=== PATIENT | female | born 1965 | race Caucasian/White ===

== ENCOUNTER 2017-07-18 22:58 | Emergency (ER) | payer OTHER ==
--- NOTE | 2017-07-18 23:07 | ED.PDOC ---
History of Present Illness - General Chief Complaint: Upper Extremity Injury Stated Complaint: pain left 5th finger Time Seen by Provider: 07/18/17 23:06 Source: patient Exam Limitations: no limitations - History of Present Illness Initial Comments: Ashley Kirk 52 y/o [facility] [employer] [facility] with sharp pain left 5th finger stating she might have hit something hard on her porch this evening.She was served a warrant of arrest by the parking meter mechanic office today. Occurred: this evening Pain - Upper Extremity: moderate: Hand, left Method of Injury: other - see hpi Improving Factors: rest Worsening Factors: movement Allergies/Adverse Reactions: Allergies NO KNOWN ALLERGY Allergy (Verified 07/18/17 23:08) Review of Systems - Review of Systems Constitutional: States: no symptoms reported EENTM: States: no symptoms reported Respiratory: States: no symptoms reported Cardiology: States: no symptoms reported Gastrointestinal/Abdominal: States: no symptoms reported Genitourinary: States: no symptoms reported Musculoskeletal: States: see HPI All other Systems: Reviewed and Negative, No Change from Baseline Past Medical History (General) - Patient Medical History Hx Seizures: No Hx Stroke: No Hx Asthma: No Hx Hypertension: No Hx Diabetes: No Family Medical History - Family History Mother Family History: Unknown Hx Family Diabetes: Yes - dad Physical Exam - Physical Exam General Appearance: Alert, No apparent distress Eyes, Ears, Nose, Throat Exam: normal ENT inspection Neck: full range of motion, supple Cardiovascular/Respiratory: regular rate, rhythm, no M/R/G, normal peripheral pulses Abdominal Exam: non-tender, no organomegaly Shoulder Exam: normal inspection, non-tender, no evidence of injury, normal ROM Elbow/Forearm Exam: normal inspection, non-tender, no evidence of injury, normal ROM Wrist Exam: normal inspection, non-tender, no evidence of injury, normal ROM Hand Exam: bone tenderness - left 5th finger, ecchymosis - left 5th finger, limited ROM - painful, soft tissue tenderness - left 5th finger Neuro/Tendon: normal sensation, normal motor functions, normal tendon functions , responds to pain Mental Status: alert, oriented x 3 Skin Exam: normal color, warm/dry Progress - Progress Progress: 07/18/17 23:54 Last Vital Signs Temp 97.4 F L 07/18/17 23:12 Pulse 78 07/18/17 23:12 Resp 20 07/18/17 23:12 BP 172/95 07/18/17 23:12 Pulse Ox 98 07/18/17 23:12 - Results/Orders Results/Orders: result of x ray released to patient for follow up with alf medical personnel - EKG/XRAY/CT XRAY: hand left-fracture non displaced 5th digit Procedures - Splinting Left 5th Digit Hand Pre-Made Type: metal Splint: aluminum Pre-Proc Neuro Vasc Exam: normal Post-Proc Neuro Vasc Exam: normal Departure - Departure Clinical Impression: Pain in finger of left hand Fracture of phalanx of little finger Qualifiers: Encounter type: initial encounter Fracture type: closed Phalanx: middle Fracture alignment: nondisplaced Laterality: left Qualified Code(s): S62.657A - Nondisplaced fracture of medial phalanx of left little finger, initial encounter for closed fracture Time of Disposition: 00:09 Disposition: Discharge to Home or Self Care Departure Forms: ED Discharge - Pt. Copy, Patient Portal Self Enrollment Instructions: DI for Finger Fracture Additional Instructions: Need repeat X-ray left 5th digit in 2 weeks;May take over the counter Advil 3 tablets 3 x a day for pain as needed
[2017-07-18 23:19] VITALS: O2SAT 98
--- NOTE | 2017-07-18 23:41 | RAD ---
EXAM DESCRIPTION: Hand,Left 3 Views CLINICAL HISTORY: left 5th finger edema,pain COMPARISON: None. FINDINGS: 3 views of the left hand. Acute nondisplaced intra-articular fracture involving the base of the left fifth middle phalanx. No other fractures identified. Osteopenia. Mild osteoarthritic change of the PIP and DIPs. IMPRESSION: 1. Acute nondisplaced intra-articular fracture involving the base of the left fifth middle phalanx. Electronically signed by: Stanislav Graham 07/18/2017 11:40 PM [facility]
[2017-07-19 00:17] VITALS: BP 153/60; TEMP 98.6
== END 2017-07-19 00:20 | disposition home or self-care (01) ==
LOC: ER 22:58
DX: S62.657A Nondisplaced fracture of middle phalanx of left little finger, initial encounter for closed fracture (principal); W22.8XXA Striking against or struck by other objects, initial encounter; Y92.008 Other place in unspecified non-institutional (private) residence as the place of occurrence of the external cause

== ENCOUNTER → 2020-04-15 | Outpatient (CLI) | payer SELFPAY ==
--- NOTE | 2020-04-15 17:41 | RAD ---
EXAM DESCRIPTION: Abdomen Flat Upright CLINICAL HISTORY: LEFT UPPER QIADRANT PAIN COMPARISON: None. TECHNIQUE: AP supine and upright views the abdomen FINDINGS: Degenerative changes are observed in the lumbar spine. There is convexity of the spine to the left. No evidence of free intraperitoneal air is seen. The abdomen is relatively gasless. The exam does suggest the possibility of some hepatomegaly. No urinary tract calcifications are detected. IMPRESSION: The exam suggests the possibility of some hepatomegaly. The exam is otherwise unremarkable. Electronically signed by: Kali Daley MD 04/15/2020 5:40 PM CDT
== END ==
LOC: YCFC.O 10:49
PROVIDERS: ATTEND Nurse Practitioner Family
DX: R10.12 Left upper quadrant pain (principal); R14.0 Abdominal distension (gaseous); K76.9 Liver disease, unspecified

== ENCOUNTER → 2020-04-16 | Outpatient (CLI) | payer SELFPAY | LOC: LAB.O 08:55 | PROVIDERS: ATTEND Nurse Practitioner Family | DX: R10.12 Left upper quadrant pain (principal); R14.0 Abdominal distension (gaseous) ==

== ENCOUNTER → 2020-04-26 | Outpatient (CLI) | payer SELFPAY ==
--- NOTE | 2020-04-27 15:28 | US ---
EXAM DESCRIPTION: Abdomen,Limited: ULTRASOUND. CLINICAL HISTORY: UPPER ABDOMINAL PAIN COMPARISON: Abdomen radiograph April 15 TECHNIQUE: Transabdominal scanning: trivedi-scale mode. Doppler mode. FINDINGS: Gallbladder: Multiple small echogenic stones. Minimal fluid in Morison's pouch. Wall thickening 4.2 mm Non-tender with transducer pressure. Common bile duct: caliber 6.1 mm borderline dilated. Liver: Heterogeneous increased echogenicity; contour liver capsule smooth where seen. Large amount of fluid around the liver. Intrahepatic biliary ducts normal caliber. Doppler hepatopedal flow and normal caliber portal vein.. 12 mm. Long axis right lobe 19.6 Pancreas: normal size and echogenicity. Duct not seen. Proximal abdominal aorta: Normal caliber.. IVC: visualized and normal caliber. Right kidney: long axis measures 9.6 cm; volume 74.8 ml. Cortical echogenicity is normal. Normal cortical thickness. No echogenic stones; no hydronephrosis. Spleen: Normal echogenicity. 11.1 cm long axis. IMPRESSION: 1. Enlarged liver with steatosis. Physiologic ducts and vascularity. Smooth capsule. Moderate ascites around the liver and spleen. Pancreas is negative. 2. Cholelithiasis of the gallbladder. Common bile and borderline dilated. Nontender with transducer pressure. 3. Right kidney unremarkable. Spleen is negative. Normal caliber proximal abdominal aorta and IVC. Electronically signed by: Scra Gustafson MD 04/27/2020 3:27 PM CDT
== END ==
LOC: US 08:11
PROVIDERS: ATTEND Nurse Practitioner Family
DX: K76.0 Fatty (change of) liver, not elsewhere classified (principal); K83.8 Other specified diseases of biliary tract; R18.8 Other ascites; K80.20 Calculus of gallbladder without cholecystitis without obstruction; E66.9 Obesity, unspecified

== ENCOUNTER → 2020-05-06 | Outpatient (CLI) | payer SELFPAY ==
--- NOTE | 2020-05-06 11:46 | CT ---
EXAM DESCRIPTION: CT ABDOMEN AND PELVIS WITH CONTRAST CLINICAL HISTORY: ABDOMINAL DISTENSION COMPARISON: Ultrasound abdomen April 16, 2020 TECHNIQUE: CT of the abdomen and pelvis are performed during IV bolus administration of 100 mL of Isovue 300. Oral contrast media is administered as well. FINDINGS: In the lower chest, the lung bases are clear. Heart size is normal. Multiple nodules adjacent to the heart and anterior diaphragm most consistent with lymph nodes. These are increased in number. One node measures 7.5 mm short axis dimension consistent with enlargement. Metastatic disease would be a major consideration with this appearance. CT abdomen Large volume of fluid in the abdomen consistent with ascites with marked abdominal distention. Subtle nodularity in the anterior upper abdominal fat. The omentum is thickened and infiltrated in appearance consistent with "omental cake" of metastatic disease. This can be seen with ovarian carcinoma, breast cancer or lung cancer. This could also be seen with peritoneal mesothelioma or tuberculous peritonitis. Correlate with results of laboratory studies of aspirated ascitic fluid. No liver surface irregularity to suggest cirrhosis. No focal liver lesion to suggest hepatic metastatic disease. Multiple stones in the gallbladder. Otherwise the spleen, pancreas, stomach and kidneys are unremarkable in appearance. Prominent adrenal glands without focal mass suggesting mild hyperplasia. No inflammation around the pancreas. No renal stones or hydronephrosis. Ill-defined increased density in the gastrohepatic ligament consistent with clustered nodes in the 0.7 to 1.4 cm size range. These could be malignant. Nodularity along the anterior aspect of the distal stomach is closely associated with the omental infiltrative mass. No bowel dilatation to suggest obstruction. CT pelvis Appendix is normal in size. No inflammation around the cecum or terminal ileum or sigmoid colon. Bladder and distal ureters are negative for stones. Normal enhancement of pelvic vessels. No inguinal or lower pelvic adenopathy. Uterus is not seen and may be surgically absent. Cystic adnexal lesions are present bilaterally measuring 4 cm on the left and 2.9 cm on the right. These are most likely related to the ovaries. Further evaluation with ultrasound is recommended. Peritoneal surfaces appear slightly thickened in the midline posteriorly with subtle enhancement. Above the near empty bladder, nodular peritoneal surface thickening is seen posteriorly in the midline and extending laterally. Early peritoneal carcinomatosis must be considered with this appearance. Bone window images are negative for fracture or lytic lesion. Coronal and sagittal reformatted images confirm the findings. Degenerative scoliotic curvature of the lower thoracic and lumbar spine. IMPRESSION: Large amount of abdominal ascites with abdominal distention. Thickened infiltrated appearance of the omentum with upper abdominal and paracardiac adenopathy worrisome for metastatic disease. Peritoneal surface thickening in the pelvis worrisome for peritoneal carcinomatosis. Correlate with laboratory analysis of ascitic fluid. This exam was performed according to our departmental dose-optimization program, which includes automated exposure control, adjustment of the mA and/or kV according to patient size and/or use of iterative reconstruction technique. Total DLP equals 1458.85 mGycm. Electronically signed by: Eulalio Coronado MD 05/06/2020 11:45 AM INSTITUTIONAL RESEARCH DIRECTOR
== END ==
LOC: CT 08:00
PROVIDERS: ATTEND Surgery
DX: R14.0 Abdominal distension (gaseous) (principal); R18.8 Other ascites; R59.9 Enlarged lymph nodes, unspecified; K66.8 Other specified disorders of peritoneum

== ENCOUNTER 2020-05-09 13:48 | Emergency (ER) | payer SELFPAY ==
[2020-05-09 14:16] VITALS: TEMP 97.8
--- NOTE | 2020-05-09 14:24 | ED.PDOC ---
History of Present Illness - General Chief Complaint: GI Problem Time Seen by Provider: 05/09/20 13:50 Information Source: patient, RN notes reviewed, Vital Signs reviewed, family, old records Exam Limitations: no limitations - History of Present Illness Initial Comments: 55 yo F with ascities from unknown cause, has had workup per patient, presents with abdominal discomfort from being distended, short of breath. Was suppose to have fluid drained tomorrow, but couldn't wait any longer. no fever. no hx of hepatitis or etoh abuse. states she has one ovary, has not had pelvic us. Review of Systems - Review of Systems Constitutional: Denies: chills, fever, malaise EENTM: Denies: blurred vision, mouth pain Respiratory: States: short of breath. Denies: cough, stridor Cardiology: Denies: chest pain, palpitations Gastrointestinal/Abdominal: Denies: abdominal pain, diarrhea, nausea, vomiting Genitourinary: Denies: frequency, hematuria Musculoskeletal: Denies: joint swelling, muscle pain, muscle stiffness Skin: Denies: change in hair/nails, dryness Neurological: Denies: headache, numbness, paresthesia, pre-existing deficit, ti ngling, tremors, weakness Endocrine: Denies: increased hunger, increased thirst, increased urine, unexplained weight gain, unexplained weight loss Hematologic/Lymphatic: Denies: blood clots, easy bleeding, easy bruising Past Medical History (General) - Patient Medical History Hx Seizures: No Hx Stroke: No Hx Dementia: No Hx Asthma: No Hx of COPD: No Hx Cardiac Disorders: No Hx Congestive Heart Failure: No Hx Pacemaker: No Hx Hypertension: No Hx Thyroid Disease: No Hx Diabetes: No Hx Gastroesophageal Reflux: No Hx Renal Disease: No Hx Cancer: No Hx of HIV: No Hx Hepatitis C: No Hx MRSA: No MRSA Source:: Nose Surgical History: Hysterectomy, other - Vaccination History Hx Tetanus, Diphtheria Vaccination: No Hx Influenza Vaccination: No Hx Pneumococcal Vaccination: No - Social History Hx Tobacco Use: Yes - Half a pack a day Hx Chewing Tobacco Use: No Hx Alcohol Use: No Hx Substance Use: No Hx Substance Use Treatment: No Hx Depression: No Feels Threatened In Home Enviroment: No Feels Threatened In a Relationship: No Hx Physical Abuse: No Hx Emotional Abuse: No Hx Suspected Abuse: No - Female History Patient is a Female of Child Bearing Age (10 -59 yrs old): Yes Patient : No - Triage Comment ED Triage Comment: The patient was alert and oriented times 4 and had noted swelling in all abdominal quadrants. She had noted difficulty taking a deep breath due to the swelling. She stated that the pain was worse upon movement and palpation. She did not appear in distress and had no other noted complaints at the time of assesment. Family Medical History - Family History Mother Family History: Unknown Hx Family Diabetes: Yes - dad Physical Exam - Physical Exam General Appearance: Alert, Comfortable, No apparent distress, Well Developed, Well Groomed, Well Hydrated, Well Nourished Eyes, Ears, Nose, Throat Exam: PERRL/EOMI, normal ENT inspection Neck: non-tender, full range of motion, supple, normal inspection Respiratory: chest non-tender, lungs clear, normal breath sounds, no respiratory distress, no accessory muscle use Cardiovascular/Chest: normal peripheral pulses, regular rate, rhythm, no gallop, no JVD, no murmur Peripheral Pulses: 2+ Gastrointestinal/Abdominal: normal bowel sounds, non tender, distended Rectal Exam: deferred Back Exam: normal inspection, no CVA tenderness Extremity: normal range of motion, non-tender, normal inspection Neurologic: as400 operator II-XII nml as tested, no motor/sensory deficits, alert, normal mood/affect, oriented x 3 Skin Exam: normal color, warm/dry Progress - Progress Progress: Discussed with Dr. Chan who is okay If I proceed with paracentesis. Was suppose to be done in his office tomorrow. studies including cytology sent. 05/09/20 16:58 INDICATION: shortness of breath PROCEDURE STENCIL PRINTER: self Ultrasound used to pao location: Y CONSENT: Consent was obtained from patient prior to the procedure. Indications, risks, and benefits were explained at length. PROCEDURE SUMMARY: A time-out was performed. My hands were washed immediately prior to the procedur e. I wore a surgical cap, mask with protective eyewear, sterile gown and sterile gloves throughout the procedure. The area was cleansed and draped in usual sterile fashion using chlorhexidine scrub. Anesthesia was achieved with 1% lidocaine. The _ of the abdomen was prepped and draped in a sterile fashion using chlorhexidine scrub. 1% lidocaine was used to numb the skin, soft tissue and peritoneum. The paracentesis catheter was inserted and advanced with negative pressure until yellow colored fluid was aspirated. Approximately 60 mL of ascitic fluid was collected and sent for laboratory analysis. The catheter was then connected to the vaccutainer and 6.5 liters of additional ascitic fluid were drained. The catheter was removed and no leaking was noted. A bandaid was placed over the puncture wound. The patient tolerated the procedure well without any immediate complications. Estimated blood loss was minimal. patient felt much relief, no longer short of breth. The data reviewed when caring for this patient included: nurse notes, prior records, etc. The history and assessments from nurses notes were reviewed and considered, and the patient's home medication list was also reviewed and considered. My assessment and the results of testing completed here in the ED were discussed with the patient/family. All questions were answered, and they express understanding of my assessment and the plan. They have been instructed to return if their symptoms worsen, and have been asked to follow up with their primary care physician to recheck today's presenting complaint. Strict return precautions given. vss patient discharged home instable condition. - Results/Orders Results/Orders: 05/09/20 15:15 GRAM STAIN Stat 05/09/20 16:17 GLUCOSE,PERITONEAL FLUID Stat TOTAL PROTEIN,PERITONEAL FLUID Stat CELL COUNT/DIFF,PERITONEAL FLD Stat 05/09/20 16:41 Discharge Stat 05/09/20 16:47 PATHOLOGY SPECIMEN Routine 05/09/20 16:49 AMYLASE,PERITONEAL FLUID Stat Laboratory Results WBC 5.6 K/mm3 (4.8-10.8) 05/09/20 14:41 RBC 5.29 M/mm3 (4.20-5.40) 05/09/20 14:41 Hgb 13.3 gm/dL (12.0-16.0) 05/09/20 14:41 Hct 40.3 % (36.0-47.0) 05/09/20 14: MCV 76.2 fl (81.0-99.0) L 05/09/20 14: MCH 25.1 pg (27.0-31.0) L 05/09/20 14: MCHC 32.9 g/dL (33.0-37.0) L 05/09/20 14:41 RDW 17.3 % (11.5-14.5) H 05/09/20 14:41 Plt Count 250 K/mm3 (130-400) 05/09/20 14:41 MPV 8.3 fl (7.40-10.4) 05/09/20 14:41 Absolute Neuts (auto) 3.50 K/uL (1.8-6.8) 05/09/20 14:41 Absolute Lymphs (auto) 1.70 K/uL (1.0-3.4) 05/09/20 14:41 Absolute Monos (auto) 0.30 K/uL (0.2-0.8) 05/09/20 14:41 Absolute Eos (auto) 0.10 K/uL (0.0-0.4) 05/09/20 14:41 Absolute Basos (auto) 0.10 K/uL (0.0-0.1) 05/09/20 14:41 Neutrophils % 62.5 % (42.0-78.0) 05/09/20 14:41 Lymphocytes % 29.7 % (20.0-50.0) 05/09/20 14:41 Monocytes % 4.6 % (2.0-9.0) 05/09/20 14:41 Eosinophils % 2.0 % (1.0-5.0) 05/09/20 14:41 Basophils % 1.2 % (0.0-2.0) 05/09/20 14:41 PT 10.4 SECONDS (9.0-10.9) 05/09/20 14:41 INR 1.05 (0.9-1.15) 05/09/20 14:41 PTT (SP) 27.6 SECONDS (21.8-31.6) 05/09/20 14:41 Sodium 138 mmol/L (135-145) 05/09/20 14:41 Potassium 3.9 mmol/L (3.6-5.0) 05/09/20 14:41 Chloride 102 mmol/L (101-111) 05/09/20 14:41 Carbon Dioxide 25 mmol/L (21-31) 05/09/20 14:41 Anion Gap 14.9 (12-18) 05/09/20 14:41 BUN 7 mg/dL (7-18) 05/09/20 14:41 Creatinine 0.91 mg/dL (0.6-1.3) 05/09/20 14:41 BUN/Creatinine Ratio 7.7 (10-20) L 05/09/20 14:41 Random Glucose 98 mg/dL (70-105) 05/09/20 14:41 Serum Osmolality 273.6 mOsm/L (275-295) L 05/09/20 14:41 Calcium 8.7 mg/dL (8.4-10.2) 05/09/20 14:41 Total Bilirubin 0.3 mg/dL (0.2-1.0) 05/09/20 14:41 AST 22 IU/L (10-42) 05/09/20 14:41 ALT 11 IU/L (10-60) 05/09/20 14:41 Alkaline Phosphatase 75 IU/L (42-121) 05/09/20 14:41 Serum Total Protein 7.5 gm/dL (6.4-8.2) 05/09/20 14:41 Albumin 3.5 g/dl (3.2-5.5) 05/09/20 14:41 Globulin 4.0 gm/dL (2.3-3.5) H 05/09/20 14:41 Albumin/Globulin Ratio 0.9 (1.1-1.9) L 05/09/20 14:41 Peritoneal Uric Acid Cancelled 05/09/20 16:17 Departure - Departure Clinical Impression: Ascites Qualifiers: Ascites type: other type Qualified Code(s): R18.8 - Other ascites Dyspnea Qualifiers: Dyspnea type: unspecified Qualified Code(s): R06.00 - Dyspnea, unspecified Time of Disposition: 16:40 Disposition: Discharge to Home or Self Care Departure Forms: ED Discharge - Pt. Copy, Patient Portal Self Enrollment Instructions: Abdominal Paracentesis, Fluid in the Belly (Ascites) (DC), Liver Failure Diet Referrals: DANNY FELDER AGENCY DIRECTOR [Primary Care Provider] - 1-5 Days
[2020-05-09 16:47] VITALS: BP 148/91; O2SAT 97
== END 2020-05-09 16:47 | disposition home or self-care (01) ==
LOC: ER 13:48
DX: R18.8 Other ascites (principal); R06.02 Shortness of breath; Z87.891 Personal history of nicotine dependence

== ENCOUNTER 2020-05-23 05:24 | Day surgery (SDC) | payer SELFPAY ==
--- NOTE | 2020-05-23 06:38 | RAD ---
EXAM DESCRIPTION: Chest,2 Views CLINICAL HISTORY: 55 years Female, preop COMPARISON: October 30, 2008 FINDINGS: 2 views/radiographs Heart size and pulmonary vessels are within normal limits. There is no pneumothorax or pleural effusion. The lungs are clear bilaterally. The soft tissues are unremarkable. No acute osseous findings. IMPRESSION: No acute cardiopulmonary abnormality. Electronically signed by: José Martino MD 05/23/2020 6:36 AM [facility]
[2020-05-23] MEDS ORDERED: LACTATED RINGERS 1,000 ML ONE (06:39)
[2020-05-23] MEDS ORDERED: MAGNESIUM SULFATE INJ 1 GM/2 ML VIAL ONE (07:00)
[2020-05-23] MEDS ORDERED: PROPOFOL 200 MG/20 ML VIAL IV ONE (07:00)
[2020-05-23] MEDS ORDERED: LIDOCAINE 1% 10 ML VIAL INJ ONE (07:00)
[2020-05-23] MEDS ORDERED: DEXAMETHASONE INJ 10 MG/ML VIAL ONE (07:00)
[2020-05-23] MEDS ORDERED: BUPIVACAINE 0.5% W/EPI 30 ML VIAL INJ ONE ×4 (10:15→12:23)
[2020-05-23] MEDS ORDERED: ROCURONIUM BROMIDE 10 MG/ML VIAL ONE (12:17)
[2020-05-23] MEDS ORDERED: FAMOTIDINE INJ 10 MG/ML VIAL IV ONE (12:17)
[2020-05-23] MEDS ORDERED: fentaNYL CITRATE INJ 50 MCG/ML 2 ML AMP ONE (12:17)
[2020-05-23] MEDS ORDERED: KETAMINE HCL 100 MG/ML VIAL ONE (12:17)
[2020-05-23] MEDS ORDERED: SUGAMMADEX SODIUM 200 MG/2 ML VIAL IV ONE ×2 (12:17→12:25)
[2020-05-23] MEDS ORDERED: MIDAZOLAM INJ 2 MG/2 ML VIAL ONE (12:18)
[2020-05-23] MEDS ORDERED: HYDROmorphone HCL INJ 2 MG/ML VIAL ONE (12:56)
[2020-05-23] MEDS ORDERED: ONDANSETRON INJ 4 MG/2 ML VIAL ONE (13:33)
--- NOTE | 2020-05-23 13:36 | OP ---
DATE OF PROCEDURE: 05/23/20 PREOPERATIVE DIAGNOSIS: 1. Recurrent ascites. 2. Possible carcinomatosis. POSTOPERATIVE DIAGNOSIS: 1. Carcinomatosis. 2. Ascites. PROCEDURE: 1. Aspiration of 7 liters of ascites. 2. Peritoneal biopsy. SURGEON: Hubert Chan MD ANESTHESIA: General FINDINGS: There was multiple seeding about the peritoneum with some fixation in the pelvis as well as an omental cake. Merry Go Round Operator peritoneal biopsies were done of the nodules. COMPLICATIONS: None. ESTIMATED BLOOD LOSS: Minimal. PLAN: Discharge. INDICATION: This is a 55-year-old woman who had noticed some increasing swelling in her abdomen. She had planned an outpatient paracentesis for evaluation. She ended up in the Emergency Department before that and got 7 liters drained. The actual cytology came back negative, but there was suspicion on the CT scan for possible omental caking and thickening in the pelvis. We recommended exploratory laparoscopy. PROCEDURE: She was brought to the Operating Suite in supine position. General anesthesia was induced. She was prepped and draped in sterile fashion. 0.5% Marcaine with epinephrine was used at all incision sites. While maintaining upward traction, a mariah was made superior to the umbilicus. The Veress needle was introduced. There was free flow of fluid into the peritoneal cavity, which was insufflated to an appropriate level of CO2 gas. The 5 mm trocar was placed, followed by the camera. There was no evidence of bleeding or bile leaking. There was a lot of ascites and obvious peritoneal seeding. Two lower ports were placed, 5 mm trocars, without difficulty. We aspirated the ascites. They had gotten 7 liters previously. She felt more symptomatic and all 700 was removed with a very small volume remaining, none that could be visualized. We scanned the abdomen and took multiple pictures. There was peritoneal seeding, relatively thick, on the diaphragm surfaces, bilateral peritoneum, along the midline of the abdomen and some fixation in the pelvis without obvious obstruction and then a large omental cake in the left upper quadrant. Peritoneal biopsies were taken in three separate areas, one pelvis biopsy was taken, but it just appeared to be some necrotic tissue. It will all be sent together as specimen. At this point, the area was hemostatic and risk of draining from the umbilical site. It was closed with a 0 Vicryl using the suture passer. The remaining trocars were removed, the abdomen desufflated and the wound were closed with Monocryl and dressings applied. She was awakened and taken to Recovery to be discharged. #[id number] [facility]
[2020-05-23] MEDS ORDERED: HYDROcodone 5MG/APAP 325MG 1 EA TAB ONE (14:08)
[2020-05-23] MEDS ORDERED: ONDANSETRON ODT 8 MG TAB ONE (14:13)
[2020-05-23] MEDS ORDERED: ONDANSETRON ODT 8 MG TAB PO ONE (14:14)
[2020-05-23 15:43] VITALS: BP 129/83; TEMP 97.1; O2SAT 100
== END 2020-05-23 15:25 | disposition home or self-care (01) ==
LOC: AMB 05:24
PROVIDERS: ATTEND Surgery
DX: R18.8 Other ascites (principal); C48.2 Malignant neoplasm of peritoneum, unspecified; K21.9 Gastro-esophageal reflux disease without esophagitis; Z88.0 Allergy status to penicillin; Z88.5 Allergy status to narcotic agent; Z79.899 Other long term (current) drug therapy
CPT/HCPCS: 00840; 36415; 49082; 49321; 71046; 80048; 85025; J1100; J1170; J2250; J2405; J3010; J3475; J3490; J7120

== ENCOUNTER → 2020-06-10 | Outpatient (CLI) | payer SELFPAY ==
--- NOTE | 2020-06-11 19:26 | MAM ---
EXAM DESCRIPTION: 3D Screening BILATERAL : Digital Mammography. CLINICAL HISTORY: 55 years Female SCREENING . No complaints. No family history of breast cancer. Menarche age 14. Childbirth age 21. Menopause age 27. No HRT. Lifetime risk of developing breast cancer (Tyrer-Cuzick model)(%): 6.2. COMPARISON: Baseline study at this facility. No prior reports available. TECHNIQUE: Bilateral CC and MLO projection full-field images, digital tomosynthesis mammographic technique. Bilateral digital 2-D full-field MLO images. CAD available for 2-D images. FINDINGS: The breast parenchymal density pattern is: Scattered areas of fibroglandular density. Bilateral solitary microcalcifications. Focal asymmetry with possible central mass density in the posterior third of the upper-outer quadrant of the right breast 9 cm from the nipple, approximately 9:30-10:00. Slightly more anteriorly and laterally is a possible mass density at 9:30 and 7:00. No skin thickening or nipple retraction No focal, stellate mass or density, focal asymmetry , and no suspicious microcalcifications left breast. IMPRESSION: BI-RADS CATEGORY: 0 - INCOMPLETE- Need additional imaging evaluation. RECOMMENDATIONS: FOLLOW-UP: Recall for additional imaging: Directed right breast ultrasound region of interest. Full field LM projection 2-D and tomosynthesis right breast.. Written communication concerning the IMPRESSION and Follow-up, will be mailed to the patient and referring health care provider. Electronically signed by: Scar Gustafson MD 06/11/2020 7:25 PM RISK ANALYST
== END ==
LOC: US 11:56
PROVIDERS: ATTEND Nurse Practitioner Family
DX: Z12.31 Encounter for screening mammogram for malignant neoplasm of breast (principal)

== ENCOUNTER 2020-06-12 09:17 | Emergency (ER) | payer SELFPAY ==
[2020-06-12] MEDS ORDERED: ONDANSETRON INJ 4 MG/2 ML VIAL ONE (09:49)
[2020-06-12] MEDS ORDERED: ONDANSETRON INJ 4 MG/2 ML VIAL IV ONE (10:10)
--- NOTE | 2020-06-12 10:23 | RAD ---
EXAM: Chest,2 Views CLINICAL HISTORY: COUGH, SOB, ASCITES COMPARISON STUDY: Chest x-ray from May 22, 2020. TECHNICAL: PA and lateral chest x-ray. FINDINGS: Small bilateral pleural effusions are present, left larger than right. No interstitial changes of edema. The heart is not enlarged. No visible consolidation/infiltrate. IMPRESSION: Small, left larger than right pleural effusions. No radiographic evidence of pulmonary edema. Electronically signed by: Racihd Peña MD 06/12/2020 10:21 AM [facility]
[2020-06-12] MEDS ORDERED: METOCLOPRAMIDE HCL INJ 10 MG/2 ML VIAL ONE (10:34)
[2020-06-12] MEDS ORDERED: METOCLOPRAMIDE HCL INJ 10 MG/2 ML VIAL IV ONE (10:36)
[2020-06-12] MEDS ORDERED: LIDOCAINE 1% 10 ML VIAL INJ ONE (11:47)
--- NOTE | 2020-06-12 12:27 | ED.PDOC ---
History of Present Illness - General Chief Complaint: General Stated Complaint: ovarian cancer / gained 3 pounds in 48hr d/t fluid Time Seen by Provider: 06/12/20 09:35 - History of Present Illness Initial Comments: PROGRESSIVE SOB X SEVERAL DAYS, WANTS TO GET ASCITES FLUID DRAINED OFF. Allergies/Adverse Reactions: Allergies Codeine Allergy (Verified 05/22/20 09:29) Penicillins Allergy (Verified 05/22/20 09:29) Povidone Iodine [From Betadine] Allergy (Verified 05/22/20 09:29) Home Medications: Ambulatory Orders Acetaminophen [[facility] Pain Relief Extra Str] 500 mg PO PRN PRN 05/22/20 Cetirizine HCl [Allergy Relief] 10 mg PO BEDTIME 05/22/20 Esomeprazole Magnesium [Nexium] 20 mg PO BEDTIME 05/22/20 Review of Systems - Review of Systems Constitutional: States: no symptoms reported EENTM: States: no symptoms reported Respiratory: States: no symptoms reported Cardiology: States: no symptoms reported Gastrointestinal/Abdominal: States: no symptoms reported Genitourinary: States: no symptoms reported Past Medical History (General) - Patient Medical History Hx Seizures: No Hx Stroke: No Hx Dementia: No Hx Asthma: No Hx of COPD: No Hx Cardiac Disorders: No Hx Congestive Heart Failure: No Hx Pacemaker: No Hx Hypertension: No Hx Thyroid Disease: No Hx Diabetes: No Hx Gastroesophageal Reflux: No Hx Renal Disease: No Hx Cancer: No Hx of HIV: No Hx Hepatitis C: No Hx MRSA: No MRSA Source:: Nose - Vaccination History Hx Tetanus, Diphtheria Vaccination: No Hx Influenza Vaccination: No Hx Pneumococcal Vaccination: No - Social History Hx Tobacco Use: Yes - Half a pack a day Hx Chewing Tobacco Use: No Hx Alcohol Use: No Hx Substance Use: No Hx Substance Use Treatment: No Hx Depression: No Hx Physical Abuse: No Hx Emotional Abuse: No Hx Suspected Abuse: No - Activities of Daily Living Hospice Agency (if applicable):: None - Female History Patient is a Female of Child Bearing Age (10 -59 yrs old): No Patient : No Family Medical History - Family History Mother Family History: Unknown Hx Family Diabetes: Yes - dad Physical Exam - Physical Exam General Appearance: Alert, Well Developed, Well Groomed, Well Hydrated, Well Nourished Ears, Nose, Throat: hearing grossly normal, normal ENT inspection, normal pharynx, abnormal TM (R) Neck: non-tender, full range of motion, supple Respiratory: chest non-tender, lungs clear, normal breath sounds, no respiratory distress, no accessory muscle use Cardiovascular/Chest: normal peripheral pulses, regular rate, rhythm, no edema, no gallop Gastrointestinal/Abdominal: normal bowel sounds, non tender, no organomegaly, other - DISTENDED ASCITES Extremity: no pedal edema Departure - Departure Clinical Impression: Malignant ascites Ovarian cancer Qualifiers: Laterality: unspecified laterality Qualified Code(s): C56.9 - Malignant neoplasm of unspecified ovary Disposition: Discharge to Home or Self Care Condition: Good Departure Forms: ED Discharge - Pt. Copy, Patient Portal Self Enrollment Diet: regular diet Referrals: DANNY FELDER NP [Primary Care Provider] - 1-2 Weeks Home Medications: Ambulatory Orders Acetaminophen [[facility] Pain Relief Extra Str] 500 mg PO PRN PRN 05/22/20 Cetirizine HCl [Allergy Relief] 10 mg PO BEDTIME 05/22/20 Esomeprazole Magnesium [Nexium] 20 mg PO BEDTIME 05/22/20 Additional Instructions: KEEP FOLLOW UP WITH ONCOLOGY AND YOUR PCP.
[2020-06-12 14:16] VITALS: BP 128/79; TEMP 98.4; O2SAT 97
== END 2020-06-12 12:45 | disposition home or self-care (01) ==
LOC: ER 09:17
DX: R18.0 Malignant ascites (principal); C56.9 Malignant neoplasm of unspecified ovary; R06.02 Shortness of breath; Z88.5 Allergy status to narcotic agent; Z88.0 Allergy status to penicillin; Z91.041 Radiographic dye allergy status; Z79.899 Other long term (current) drug therapy; Z87.891 Personal history of nicotine dependence; Z20.828 Contact with and (suspected) exposure to other viral communicable diseases
CPT/HCPCS: 36415; 71046; 80053; 82150; 82945; 83605; 84157; 85025; 85610; 85730; 87040; 87502; 87635; J2405; J2765

== ENCOUNTER 2020-06-29 11:45 | Emergency (ER) | payer SELFPAY ==
[2020-06-29] MEDS ORDERED: SODIUM CHLORIDE 0.9% (FLUSH) 10 ML SYG IV PRN (12:12)
[2020-06-29] MEDS ORDERED: KETOROLAC TROMETHAMINE INJ 30 MG/ML VIAL IV ONE (12:17)
--- NOTE | 2020-06-29 13:14 | CT ---
EXAM: Abdoment/Pelvis w/o Contrast CLINICAL INDICATION: Abdominal pain. COMPARISON: 05/06/2020 TECHNIQUE: The CT scan was done using contiguous axial 2.5 mm noncontrast sections through the abdomen and pelvis. This exam was performed according to our departmental dose-optimization program, which includes automated exposure control, adjustment of the mA and/or kV according to patient size and/or use of iterative reconstruction technique. FINDINGS: The visualized portions of the lung bases reveal a moderate left pleural effusion and a small right pleural effusion. There is mild atelectasis in the left lower lobe. A moderate amount of ascites is seen throughout the abdomen and pelvis. The liver and spleen are unremarkable. Multiple gallstones are noted in the gallbladder. The kidneys, adrenal glands, and pancreas are unremarkable except for mild prominence of the left adrenal gland. The aorta contains atherosclerotic calcifications without evidence of aneurysm. There are no dilated loops of small bowel, free air, free fluid, or abscess. The uterus is surgically absent. Bilateral simple appearing ovarian cysts are noted measuring 4.0 x 3.1 cm on the right and 3.5 x 3.2 cm on the left, almost certainly benign for which no routine imaging follow-up is recommended. Compared to the previous CT scan, pleural effusions are new. Ascites is decreased compared to the prior study. IMPRESSION: 1. Bilateral pleural effusions left greater than right. 2. Moderate ascites. 3. Cholelithiasis. 4. No other acute process is identified. Electronically signed by: Greg Alvarez MD 06/29/2020 1:13 PM CHIEF SOLUTION ARCHITECT
--- NOTE | 2020-06-29 13:49 | RAD ---
EXAM: Chest,1 View CLINICAL INDICATION: Rib pain COMPARISON: 06/12/2020 FINDINGS: A single view of the chest was obtained. The heart size is normal. The pulmonary vascularity is unremarkable. The lungs are clear except for a small left pleural effusion. There is a right-sided PICC line with its tip in the SVC. IMPRESSION: Small left pleural effusion, which appears similar to the previous study. Electronically signed by: Greg Alvarez MD 06/29/2020 1:47 PM HYDROGENATION STILL OPERATOR
[2020-06-29] MEDS ORDERED: FUROSEMIDE INJ 40 MG/4 ML VIAL IV ONE (14:30)
[2020-06-29] MEDS ORDERED: MEPERIDINE HCL 50 MG/ML VIAL IV ONE (14:31)
--- NOTE | 2020-06-29 14:36 | ED.PDOC ---
History of Present Illness - General Chief Complaint: Abdominal Pain Stated Complaint: Abdominal distention/pain, SOB, nausea Time Seen by Provider: 06/29/20 11:55 Source: patient, family Exam Limitations: no limitations - History of Present Illness Timing/Duration: other - States that she has had this intermittently for the last month Severity: moderate Improving Factors: nothing Worsening Factors: nothing Associated Symptoms: nausea/vomiting, shortness of breath Allergies/Adverse Reactions: Allergies Codeine Allergy (Verified 06/29/20 12:42) Penicillins Allergy (Verified 06/29/20 12:42) Povidone Iodine [From Betadine] Allergy (Verified 06/29/20 12:42) Home Medications: Ambulatory Orders Acetaminophen [[facility] Pain Relief Extra Str] 500 mg PO PRN PRN 05/22/20 Cetirizine HCl [Allergy Relief] 10 mg PO BEDTIME 05/22/20 Esomeprazole Magnesium [Nexium] 20 mg PO BEDTIME 05/22/20 Metoclopramide HCl [Reglan] 10 mg PO Q6H PRN #20 tab 06/12/20 Review of Systems - Review of Systems Constitutional: Denies: chills, fever EENTM: Denies: eye pain, blurred vision, tearing Respiratory: States: short of breath Cardiology: States: edema. Denies: chest pain, palpitations, syncope Gastrointestinal/Abdominal: Denies: abdominal pain, diarrhea, nausea Genitourinary: Denies: discharge, frequency, hematuria Musculoskeletal: States: muscle pain. Denies: back pain Neurological: Denies: anxiety, depressed Endocrine: Denies: excessive sweating, flushing, intolerance to cold Past Medical History (General) - Patient Medical History Hx Seizures: No Hx Stroke: No Hx Dementia: No Hx Asthma: No Hx of COPD: No Hx Cardiac Disorders: No Hx Congestive Heart Failure: No Hx Pacemaker: No Hx Hypertension: No Hx Thyroid Disease: No Hx Diabetes: No Hx Gastroesophageal Reflux: No Hx Renal Disease: No Hx Cancer: Yes - Stage 3 ovarian Hx of HIV: No Hx Hepatitis C: No Hx MRSA: No MRSA Source:: Nose Surgical History: Hysterectomy, other - Vaccination History Hx Tetanus, Diphtheria Vaccination: No Hx Influenza Vaccination: No Hx Pneumococcal Vaccination: No - Social History Hx Tobacco Use: Yes Hx Chewing Tobacco Use: No Hx Alcohol Use: No Hx Substance Use: No Hx Substance Use Treatment: No Hx Depression: No Hx Physical Abuse: No Hx Emotional Abuse: No Hx Suspected Abuse: No - Female History Patient is a Female of Child Bearing Age (10 -59 yrs old): Yes Patient : No Family Medical History - Family History Mother Family History: Unknown Hx Family Diabetes: Yes - dad Physical Exam - Physical Exam General Appearance: Alert Eye Exam: bilateral normal Ears, Nose, Throat: hearing grossly normal, normal ENT inspection, normal pharynx Neck: non-tender, full range of motion, supple Respiratory: chest non-tender, lungs clear, normal breath sounds, decreased breath sounds Cardiovascular/Chest: normal peripheral pulses, regular rate, rhythm, no gallop, no JVD, no murmur Peripheral Pulses: radial,right: 2+, radial,left: 2+, popliteal,right: 2+, p opliteal,left: 2+ Gastrointestinal/Abdominal: normal bowel sounds, soft, tenderness - diffuse mild Rectal Exam: normal exam Back Exam: normal inspection Extremity: normal range of motion 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 CT abdomen shows moderate ascites in the abdomen and bilateral pleural effusions. 1 to talk to the patient about a Diagnostic thoracenthesis . She and her state that they are very hesitant because last time she was here she had a lot of pain with the paracentesis and the state that they are very worried about the risk of lung collapsing. I explained to the patient that this is a risk , but it that rarely happens and she will benefit a lot from thoracentesis. She states that she would prefer to try the Lasix first and follow-up with her oncologist on Wednesday. Patient advised to return to the ED if symptoms worsen. Departure - Departure Clinical Impression: Ovarian cancer, Abdominal ascites, Pleural effusion Disposition: Discharge to Home or Self Care Departure Forms: ED Discharge - Pt. Copy, Patient Portal Self Enrollment Instructions: DI for Abdominal Pain-Adult Referrals: DANNY FELDER NP [Primary Care Provider] - 1-2 Weeks Home Medications: Ambulatory Orders Acetaminophen [[facility] Pain Relief Extra Str] 500 mg PO PRN PRN 05/22/20 Cetirizine HCl [Allergy Relief] 10 mg PO BEDTIME 05/22/20 Esomeprazole Magnesium [Nexium] 20 mg PO BEDTIME 05/22/20 Metoclopramide HCl [Reglan] 10 mg PO Q6H PRN #20 tab 06/12/20 Additional Instructions: -As discussed in the emergency department today return if symptoms worsen -As discussed he will benefit from therapeutic thoracentesis with since you are concerned about your lungs collapsing we will treat you with Lasix for now. Ensure to follow-up with your oncologist and ensure to return to the ED as soon as possible if needed -Ensure to follow-up with your oncologist on Wednesday with your primary care physician 1 to 2 days
[2020-06-29 15:33] VITALS: BP 137/95; TEMP 96.7; O2SAT 93
== END 2020-06-29 15:33 | disposition home or self-care (01) ==
LOC: ER 11:45
DX: C56.9 Malignant neoplasm of unspecified ovary (principal); R18.0 Malignant ascites; J90 Pleural effusion, not elsewhere classified; R06.02 Shortness of breath; Z87.891 Personal history of nicotine dependence
CPT/HCPCS: 36415; 71045; 74176; 80048; 80076; 83605; 83690; 83880; 84484; 85025; 93005; J1885; J1940; J2175